=== PATIENT | male | born 1970 | race Caucasian/White ===

== ENCOUNTER 2017-09-29 21:10 | Emergency (ER) | payer SELFPAY ==
[~2017-09-29] VITALS: Ht 182.9 cm; Wt 86.2 kg
[~2017-09-29 21:10] MED LIST: ASPI81CH59 PO; BEN10T GT; CAR3125T OR; DIGO0.1262 PO; FURO20TA PO; SPIR25TA89 PO
[2017-09-29 23:18] LABS: Urine Bacteria FEW /hpf (None Seen); Urine Blood Negative /uL (Negative); Urine Mucus FEW (None Seen); Urine Specific Gravity 1.031 (1.001-1.035); Urine WBC 1 /hpf (0 - 3)
[2017-09-29 23:45] LABS: Basophils # (auto) 0 uL; Basophils % (auto) 0.5 % (0.0-2.0); Eosinophils # (auto) 0.2 uL; Eosinophils % (auto) 1.9 % (0.0-7.0); Hematocrit 46.3 % (41.0-53.0); Hemoglobin 15.5 g/dL (13.5-17.5); Lymphocytes # (auto) 1.3 uL; Lymphocytes % (auto) 14.3 % (10.0-50.0); Mean Corpuscular Hemoglobin 30.8 pg (28.0-32.0); Mean Corpuscular Hgb Conc. 33.6 g/dL (32.0-36.0); Mean Corpuscular Volume 91.9 fL (80.0-100.0); Monocytes # (auto) 0.5 uL; Monocytes % (auto) 5.6 % (0.0-12.0); Neutrophils # (auto) 7.1 uL; Neutrophils % (auto) 77.7 % (37.0-80.0); Platelet Count (auto) 165 10^3/uL (140-450); Red Blood Cells 5.04 10^6/uL (4.5-5.90); White Blood Cell 9.2 10^3/uL (4.4-10.8)
[2017-09-30 00:04] LABS: Alanine Aminotransferase 25 U/L (16-61); Albumin 3.4 g/dL (3.4-5.0); Anion Gap 7 (5-15); BUN/Creatinine Ratio 16.3; Blood Urea Nitrogen 14 mg/dL (7-18); Calcium 8.6 mg/dL (8.5-10.1); Carbon Dioxide 27 mmol/L (21-32); Chloride 102 mmol/L (98-107); GFR African American 124 mL/min; GFR Non-African American 102 mL/min; Glucose 116 mg/dL (74-106); Magnesium 1.8 mg/dL (1.6-2.6); Potassium 4.2 mmol/L (3.5-5.1); Sodium 136 mmol/L (136-145)
[2017-09-30 00:11] LABS: Alkaline Phosphatase 66 U/L (45-117); Aspartate Aminotransferase 10 U/L (15-37); Bilirubin, Total 0.6 mg/dL (0.2-1.0); Total Protein 8.2 g/dL (6.4-8.2)
[2017-09-30] MEDS ORDERED: ASPirin 81 mg TAB PO ONE (08:30)
[2017-09-30 08:56] VITALS: BP 120/70
== END 2017-09-30 09:09 | disposition home or self-care (01) ==
LOC: ER 21:10
DX: R07.89 Other chest pain (principal); I11.0 Hypertensive heart disease with heart failure; I50.9 Heart failure, unspecified
CPT/HCPCS: 36415; 71045; 80053; 81001; 83735; 83880; 84484; 85025; 93005

== ENCOUNTER 2021-04-17 20:47 | Inpatient (IN) | payer MEDICAID ==
[~2021-04-17] VITALS: Ht 182.9 cm; Wt 86.2 kg
[~2021-04-17 20:47] MED LIST changes: -BEN10T GT; +BENA10TA14 GT; +FURO1TAB33 PO; -FURO20TA PO; +SPIR25TA8 PO; -SPIR25TA89 PO
[2021-04-17] MEDS ORDERED: dilTIAZem 25 MG/5 ML VIAL IV ONE ×2 (21:45→22:15)
[2021-04-17 23:11] LABS: Basophils # (auto) 0.1 10 ^3/uL (0-0.2); Basophils % (auto) 1.2 % (0.0-2.0); Eosinophils # (auto) 0.1 10 ^3/uL (0-0.8); Eosinophils % (auto) 1.6 % (0.0-7.0); Hematocrit 50.3 % (41.0-53.0); Hemoglobin 15.9 g/dL (13.5-17.5); Lymphocytes # (auto) 1.4 10 ^3/uL (0.4-5.4); Lymphocytes % (auto) 24.4 % (10.0-50.0); Mean Corpuscular Hemoglobin 28.3 pg (28.0-32.0); Mean Corpuscular Hgb Conc. 31.7 g/dL (32.0-36.0); Mean Corpuscular Volume 89.3 fL (80.0-100.0); Monocytes # (auto) 0.4 10 ^3/uL (0-1.3); Monocytes % (auto) 7.5 % (0.0-12.0); Neutrophils # (auto) 3.6 10 ^3/uL (1.6-8.6); Neutrophils % (auto) 65.3 % (37.0-80.0); Nucleated Red Blood Cells % 0.1 %; Red Blood Cells 5.63 10^6/uL (4.5-5.90); Red Cell Distribution Width 17.1 % (11.8-14.3); White Blood Cell 5.6 10^3/uL (4.4-10.8)
[2021-04-17 23:30] LABS: Albumin 3.3 g/dL (3.4-5.0); Calcium 8.8 mg/dL (8.5-10.1)
[2021-04-17 23:35] LABS: BUN/Creatinine Ratio 19.6; Bilirubin, Total 0.9 mg/dL (0.2-1.0); Total Protein 7.5 g/dL (6.4-8.2)
[2021-04-17 23:37] LABS: Potassium 5.2 mmol/L (3.5-5.1)
[2021-04-17 23:53] LABS: INR 1.14 (0.9-1.15); Partial Thromboplastin Time 25.4 sec (23.6-33.0)
[2021-04-18] MEDS ORDERED: NITROGLYCERIN 0.4 MG SL TAB SL PRN (00:15)
[2021-04-18] MEDS ORDERED: ACETAMINOPHEN 325 MG TAB PO PRN (00:15)
[2021-04-18] MEDS ORDERED: DOCUSATE SOD 100 MG CAP PO PRN (00:15)
[2021-04-18] MEDS ORDERED: MORPHINE SULFATE INJECTION 2 MG/ML SYRG IV PRN (00:15)
[2021-04-18] MEDS ORDERED: TEMAZEPAM 15 MG CAP PO PRN (00:15)
[2021-04-18] MEDS ORDERED: HYDROcodone-ACET 5/325MG TAB PO PRN (00:15)
[2021-04-18] MEDS ORDERED: MORPHINE SULFATE 4 MG/ML SYR/VIAL IV PRN (00:15)
[2021-04-18] MEDS ORDERED: METOPROLOL TARTRATE 1MG/1ML-5ML VIAL IV PRN (00:30)
[2021-04-18] MEDS: ONDANSETRON HCL 4 MG/2 ML VIAL IV PRN ×2 (05:58→17:24)
[2021-04-18] MEDS ORDERED: AMIODARONE HCL (50 MG/ ML) 3 ML VIAL IV ONE (06:06)
[2021-04-18] MEDS ORDERED: AMIODARONE HCL 150 MG in D5W 5% 100 ML IV ONE (06:15)
[2021-04-18] MEDS ORDERED: AMIODARONE 450mg/250ml AE 250 ML IV SCH (06:15)
[2021-04-18] MEDS ORDERED: AMIODARONE 450mg/250ml AE 250 ML IV ONE (06:20)
[2021-04-18] MEDS ORDERED: DIGOXIN (250MCG/ML) 2 ML AMPULE IV ONE (07:30)
[2021-04-18] MEDS ORDERED: MULTIPLE VITAMIN TAB PO SCH (10:00)
[2021-04-18] MEDS ORDERED: DIGOXIN 0.125 MG TAB PO SCH (10:00)
[2021-04-18] MEDS ORDERED: ENOXAPARIN SOD 100 MG/1 ML SYRINGE SC SCH (10:00)
[2021-04-18] MEDS ORDERED: ASCORBIC ACID 500 MG TAB PO SCH (10:00)
[2021-04-18] MEDS ORDERED: BENAZEPRIL HCL 10 MG TAB GT SCH (10:00)
[2021-04-18] MEDS ORDERED: SPIRONOLACTONE 25 MG TAB PO SCH (10:00)
[2021-04-18] MEDS ORDERED: CARVEDILOL 3.125 MG TAB PO SCH (10:00)
[2021-04-18] MEDS ORDERED: ZINC SULFATE 220mg CAP or TAB PO SCH (10:00)
[2021-04-18] MEDS ORDERED: FUROSEMIDE 20 MG TAB PO SCH (10:00)
[2021-04-18 11:15] LABS: Urine Bacteria NONE SEEN /hpf (None Seen); Urine Blood Negative /uL (Negative); Urine Hyaline Cast MANY /lpf (0 - 2); Urine Mucus FEW (None Seen); Urine Specific Gravity 1.021 (1.001-1.035); Urine WBC <1 /hpf (0 - 3)
[2021-04-18 12:00] VITALS: BP 92/39
[2021-04-18] MEDS: AMIODARONE 450mg/250ml AE 250 ML IV SCH ×2 (12:15→17:24)
[2021-04-18 13:00] VITALS: BP 92/39
[2021-04-18 16:32] LABS: Amphetamine Screen, Urine POSITIVE (NEGATIVE); Barbiturate Scree,Urine NEGATIVE (NEGATIVE); Benzodiazephine Screen, Urine NEGATIVE (NEGATIVE); Cannabinoid Screen, Urine NEGATIVE (NEGATIVE); Cocaine Screen, Urine NEGATIVE (NEGATIVE); Phencyclidine Screen, Urine NEGATIVE (NEGATIVE)
[2021-04-18 16:40] LABS: Opiate Scree,Urine NEGATIVE (NEGATIVE)
[2021-04-18 17:00] VITALS: BP 100/56
[2021-04-18 20:45] VITALS: BP 96/71
== END 2021-04-18 21:47 | disposition left against medical advice (07) | DRG 201 ==
LOC: EDBD 20:47 → ER 20:49 → TELE 04-18 00:14 → TELE-WESTW 04-18 11:07
PROVIDERS: ADMIT Internal Medicine; ATTEND Internal Medicine
DX: I48.91 Unspecified atrial fibrillation (principal); I50.9 Heart failure, unspecified; R10.13 Epigastric pain; Z53.29 Procedure and treatment not carried out because of patient's decision for other reasons; Z20.822 Contact with and (suspected) exposure to COVID-19; Z79.82 Long term (current) use of aspirin; Z79.899 Other long term (current) drug therapy; Z81.8 Family history of other mental and behavioral disorders; Z82.49 Family history of ischemic heart disease and other diseases of the circulatory system; Z91.19 Patient's noncompliance with other medical treatment and regimen
CPT/HCPCS: 36415; 71045; 80053; 80307; 81001; 83735; 83880; 84484; 85025; 85379; 85610; 85730; 87040; 87426; 93306; 96365; 96366; 96372; 96375; G0378; J2405; J7060

== ENCOUNTER 2021-05-03 21:17 | Emergency (ER) | payer MEDICAID ==
[~2021-05-03] VITALS: Ht 182.9 cm; Wt 86.2 kg
[2021-05-03 21:23] VITALS: BP 117/87
== END 2021-05-04 03:24 | disposition left against medical advice (07) ==
LOC: ER 21:17
DX: R22.43 Localized swelling, mass and lump, lower limb, bilateral (principal); Z53.21 Procedure and treatment not carried out due to patient leaving prior to being seen by health care provider

== ENCOUNTER 2021-10-11 21:44 | Inpatient (IN) | payer MEDICAID ==
[~2021-10-11] VITALS: Ht 182.9 cm; Wt 100.0 kg
[2021-10-11 23:35] LABS: Basophils # (auto) 0.2 10 ^3/uL (0-0.2); Basophils % (auto) 3.5 % (0.0-2.0); Eosinophils # (auto) 0.1 10 ^3/uL (0-0.8); Eosinophils % (auto) 1.4 % (0.0-7.0); Hematocrit 47.7 % (41.0-53.0); Hemoglobin 16.1 g/dL (13.5-17.5); Lymphocytes # (auto) 0.7 10 ^3/uL (0.4-5.4); Lymphocytes % (auto) 12.7 % (10.0-50.0); Mean Corpuscular Hemoglobin 28.8 pg (28.0-32.0); Mean Corpuscular Hgb Conc. 33.7 g/dL (32.0-36.0); Mean Corpuscular Volume 85.6 fL (80.0-100.0); Monocytes # (auto) 0.4 10 ^3/uL (0-1.3); Monocytes % (auto) 7.2 % (0.0-12.0); Neutrophils # (auto) 4.4 10 ^3/uL (1.6-8.6); Neutrophils % (auto) 75.2 % (37.0-80.0); Nucleated Red Blood Cells % 0.1 %; Red Blood Cells 5.57 10^6/uL (4.5-5.90); Red Cell Distribution Width 14.3 % (11.8-14.3); White Blood Cell 5.9 10^3/uL (4.4-10.8)
[2021-10-11 23:56] LABS: Albumin 3.7 g/dL (3.4-5.0); BUN/Creatinine Ratio 12.3; Calcium 8.8 mg/dL (8.5-10.1); Magnesium 2.5 mg/dL (1.6-2.6); Potassium 4.1 mmol/L (3.5-5.1)
[2021-10-11 23:58] LABS: Bilirubin, Total 1.6 mg/dL (0.2-1.0); Total Protein 7.5 g/dL (6.4-8.2)
[2021-10-12] MEDS ORDERED: FUROSEMIDE 100 MG/10ML VIAL IV ONE (02:30)
[2021-10-12] MEDS ORDERED: NITROGLYCERIN 0.4 MG SL TAB SL PRN (05:00)
[2021-10-12] MEDS ORDERED: MORPHINE SULFATE INJ 2 MG/ml SYRG IV PRN (05:00)
[2021-10-12] MEDS ORDERED: ACETAMINOPHEN 325 MG TAB PO PRN (05:00)
[2021-10-12 06:01] LABS: Urine Bacteria NONE SEEN /hpf (None Seen); Urine Blood Negative /uL (Negative); Urine Specific Gravity 1.006 (1.001-1.035); Urine WBC <1 /hpf (0 - 3)
[2021-10-12 06:02] LABS: Alcohol, Urine < 3.0 mg/dL (0-10); Amphetamine Screen, Urine NEGATIVE (NEGATIVE); Barbiturate Scree,Urine NEGATIVE (NEGATIVE); Benzodiazephine Screen, Urine NEGATIVE (NEGATIVE); Cannabinoid Screen, Urine NEGATIVE (NEGATIVE); Cocaine Screen, Urine NEGATIVE (NEGATIVE); Opiate Scree,Urine NEGATIVE (NEGATIVE); Phencyclidine Screen, Urine NEGATIVE (NEGATIVE)
[2021-10-12] MEDS: CARVEDILOL 3.125 MG TAB PO SCH ×2 (10:00→22:12)
[2021-10-12] MEDS: FUROSEMIDE 100 MG/10ML VIAL IV SCH (10:00)
[2021-10-12] MEDS: cefTRIAXone 1GM/50ML D5W 50 ML IV SCH (10:08)
[2021-10-12] MEDS: APIXABAN 5 MG TAB PO SCH ×2 (10:24→22:12)
[2021-10-12] MEDS: ASCORBIC ACID 500 MG TAB PO SCH ×2 (10:24→22:13)
[2021-10-12] MEDS: ZINC SULFATE 220mg CAP or TAB PO SCH (10:24)
[2021-10-12] MEDS: MULTIPLE VITAMIN TAB PO SCH (10:24)
[2021-10-12] MEDS: ENOXAPARIN SOD 30 MG/0.3 ML SYRINGE SC SCH (10:25)
[2021-10-12] MEDS: AZITHROMYCIN 500MG/ 250ML 250 ML IV SCH (10:25)
[2021-10-12] MEDS: SODIUM CHLORIDE 0.9% 1,000 ML IV SCH (11:45)
[2021-10-12 16:30] VITALS: BP 93/59
[2021-10-12] MEDS: IPRATROPIUM BROM 0.5 MG/2.5ML INH SOL NEB SCH ×2 (18:45→22:21)
[2021-10-12] MEDS ORDERED: APIX2.5T PO (18:53)
[2021-10-12 19:22] VITALS: BP 104/75
[2021-10-12 22:00] VITALS: BP 104/75
[2021-10-13] MEDS: SODIUM CHLORIDE 0.9% 1,000 ML IV SCH ×2 (00:15→12:45)
[2021-10-13 05:00] VITALS: BP 95/61
[2021-10-13] MEDS: IPRATROPIUM BROM 0.5 MG/2.5ML INH SOL NEB SCH ×5 (06:07→22:10)
[2021-10-13] MEDS: SUCRALFATE 1 GM/10 ML ORAL SUSP PO SCH ×4 (06:26→22:12)
[2021-10-13] MEDS ORDERED: PNEUMOCOCCAL VACC POLYS 25 MCG/0.5 ML VIAL IM ONE (06:30)
[2021-10-13] MEDS ORDERED: INFLUENZA QUAD 2021-2022 0.5 ML SYRG IM ONE (06:30)
[2021-10-13 08:00] VITALS: BP 101/60
[2021-10-13] MEDS: AZITHROMYCIN 500MG/ 250ML 250 ML IV SCH (08:22)
[2021-10-13] MEDS: cefTRIAXone 1GM/50ML D5W 50 ML IV SCH (08:22)
[2021-10-13] MEDS: MULTIPLE VITAMIN TAB PO SCH (08:23)
[2021-10-13] MEDS: ZINC SULFATE 220mg CAP or TAB PO SCH (08:23)
[2021-10-13] MEDS: ASCORBIC ACID 500 MG TAB PO SCH ×2 (08:23→22:13)
[2021-10-13] MEDS: APIXABAN 5 MG TAB PO SCH ×2 (08:23→22:13)
[2021-10-13] MEDS: ONDANSETRON HCL 4 MG/2 ML VIAL IV PRN (08:23)
[2021-10-13] MEDS: FUROSEMIDE 100 MG/10ML VIAL IV SCH (08:24)
[2021-10-13] MEDS: CARVEDILOL 3.125 MG TAB PO SCH ×2 (08:24→22:13)
[2021-10-13] MEDS: ENOXAPARIN SOD 30 MG/0.3 ML SYRINGE SC SCH (08:39)
[2021-10-13 09:00] VITALS: BP 93/41
[2021-10-13] MEDS: PANTOPRAZOLE 40 MG TAB PO SCH (09:39)
[2021-10-13] MEDS: MORPHINE SULFATE INJ 2 MG/ml SYRG IV PRN ×2 (10:11→20:46)
[2021-10-13 13:00] VITALS: BP 97/69
[2021-10-13] MEDS ORDERED: METOPROLOL TARTRATE 1MG/1ML-5ML VIAL IV PRN (15:00)
[2021-10-13 16:51] VITALS: BP 111/76
[2021-10-13 21:08] LABS: Basophils # (auto) 0.1 10 ^3/uL (0-0.2); Basophils % (auto) 1.2 % (0.0-2.0); Eosinophils # (auto) 0 10 ^3/uL (0-0.8); Eosinophils % (auto) 0.7 % (0.0-7.0); Hematocrit 44.1 % (41.0-53.0); Hemoglobin 14.9 g/dL (13.5-17.5); Lymphocytes # (auto) 0.8 10 ^3/uL (0.4-5.4); Lymphocytes % (auto) 11.4 % (10.0-50.0); Mean Corpuscular Hgb Conc. 33.6 g/dL (32.0-36.0); Mean Corpuscular Volume 86.1 fL (80.0-100.0); Monocytes # (auto) 0.6 10 ^3/uL (0-1.3); Monocytes % (auto) 8.9 % (0.0-12.0); Neutrophils # (auto) 5.4 10 ^3/uL (1.6-8.6); Neutrophils % (auto) 77.8 % (37.0-80.0); Nucleated Red Blood Cells % 0.2 %; Red Blood Cells 5.12 10^6/uL (4.5-5.90); Red Cell Distribution Width 14.3 % (11.8-14.3)
[2021-10-13 21:31] LABS: Albumin 3.1 g/dL (3.4-5.0); BUN/Creatinine Ratio 11.2; Potassium 4.1 mmol/L (3.5-5.1)
[2021-10-13 21:34] LABS: Bilirubin, Total 1.2 mg/dL (0.2-1.0); Total Protein 7.2 g/dL (6.4-8.2)
[2021-10-13 21:36] VITALS: BP 103/78
[2021-10-14] MEDS: SODIUM CHLORIDE 0.9% 1,000 ML IV SCH ×2 (01:15→13:45)
[2021-10-14 04:49] VITALS: BP 112/76
[2021-10-14] MEDS: SUCRALFATE 1 GM/10 ML ORAL SUSP PO SCH ×4 (06:45→20:41)
[2021-10-14] MEDS: IPRATROPIUM BROM 0.5 MG/2.5ML INH SOL NEB SCH ×5 (06:53→22:00)
[2021-10-14 08:38] VITALS: BP 113/83
[2021-10-14] MEDS: cefTRIAXone 1GM/50ML D5W 50 ML IV SCH (08:47)
[2021-10-14] MEDS: MULTIPLE VITAMIN TAB PO SCH (11:05)
[2021-10-14] MEDS: ASCORBIC ACID 500 MG TAB PO SCH ×2 (11:05→20:42)
[2021-10-14] MEDS: APIXABAN 5 MG TAB PO SCH ×2 (11:05→20:41)
[2021-10-14] MEDS: PANTOPRAZOLE 40 MG TAB PO SCH (11:05)
[2021-10-14] MEDS: CARVEDILOL 3.125 MG TAB PO SCH ×2 (11:07→21:43)
[2021-10-14] MEDS: MORPHINE SULFATE INJ 2 MG/ml SYRG IV PRN ×2 (11:08→21:45)
[2021-10-14] MEDS: ZINC SULFATE 220mg CAP or TAB PO SCH (12:15)
[2021-10-14] MEDS: ONDANSETRON HCL 4 MG/2 ML VIAL IV PRN ×2 (12:23→21:45)
[2021-10-14 13:00] VITALS: BP 107/73
[2021-10-14 17:23] VITALS: BP 110/65
[2021-10-14] MEDS: DOCUSATE SOD 100 MG CAP PO PRN (20:43)
[2021-10-14 22:00] VITALS: BP 116/74
[2021-10-15] VITALS (7 sets, daily range): BP systolic 94–146; BP diastolic 58–98
[2021-10-15] MEDS: ONDANSETRON HCL 4 MG/2 ML VIAL IV PRN ×2 (03:00→11:28)
[2021-10-15] MEDS: MORPHINE SULFATE INJ 2 MG/ml SYRG IV PRN ×3 (03:00→15:00)
[2021-10-15] MEDS: SODIUM CHLORIDE 0.9% 1,000 ML IV SCH ×2 (04:55→05:38)
[2021-10-15] MEDS: SUCRALFATE 1 GM/10 ML ORAL SUSP PO SCH ×4 (05:21→22:00)
[2021-10-15] MEDS: IPRATROPIUM BROM 0.5 MG/2.5ML INH SOL NEB SCH ×6 (06:40→22:22)
[2021-10-15] MEDS: cefTRIAXone 1GM/50ML D5W 50 ML IV SCH (09:33)
[2021-10-15] MEDS: ASCORBIC ACID 500 MG TAB PO SCH ×2 (09:34→22:00)
[2021-10-15] MEDS: PANTOPRAZOLE 40 MG TAB PO SCH (09:34)
[2021-10-15] MEDS: MULTIPLE VITAMIN TAB PO SCH (09:34)
[2021-10-15] MEDS: APIXABAN 5 MG TAB PO SCH ×2 (09:35→22:00)
[2021-10-15] MEDS: ZINC SULFATE 220mg CAP or TAB PO SCH (09:35)
[2021-10-15] MEDS: CARVEDILOL 3.125 MG TAB PO SCH ×2 (09:37→22:00)
[2021-10-15 10:07] LABS: Hepatitis B Surface Antibody Positive (Negative)
[2021-10-15 10:39] LABS: Hepatitis A Total Antibody Positive (Negative)
[2021-10-15] MEDS: HYDROcodone-ACET 5/325MG TAB PO PRN (11:28)
[2021-10-15] MEDS: DOCUSATE SOD 100 MG CAP PO PRN (11:28)
[2021-10-15 13:13] LABS: Hepatitis C Antibody Negative (Negative)
[2021-10-15] MEDS ORDERED: ALUM & MAG HYDROX-SIMETH LIQ(MAALOX) 30 ML PO ONE (16:15)
[2021-10-15] MEDS: metroNIDAZOLE 500MG/100ML 100 ML IV SCH ×2 (16:15→22:00)
[2021-10-15] MEDS ORDERED: PANTOPRAZOLE 40 MG/10 ML VIAL INJ IV SCH (22:00)
[2021-10-16] MEDS: SODIUM CHLORIDE 0.9% 1,000 ML IV SCH (03:15)
[2021-10-16 05:00] VITALS: BP 95/67
[2021-10-16] MEDS: metroNIDAZOLE 500MG/100ML 100 ML IV SCH ×2 (05:04→14:00)
[2021-10-16] MEDS: SUCRALFATE 1 GM/10 ML ORAL SUSP PO SCH ×4 (06:32→20:44)
[2021-10-16] MEDS: IPRATROPIUM BROM 0.5 MG/2.5ML INH SOL NEB SCH ×7 (06:33→22:52)
[2021-10-16 08:00] VITALS: BP 125/93
[2021-10-16 09:00] VITALS: BP 121/82
[2021-10-16] MEDS ORDERED: levoFLOXacin 250MG 50 ML IV SCH (10:00)
[2021-10-16] MEDS: ZINC SULFATE 220mg CAP or TAB PO SCH (11:21)
[2021-10-16] MEDS: CARVEDILOL 3.125 MG TAB PO SCH ×2 (11:24→20:45)
[2021-10-16] MEDS: APIXABAN 5 MG TAB PO SCH ×2 (11:25→20:44)
[2021-10-16] MEDS: MULTIPLE VITAMIN TAB PO SCH (11:25)
[2021-10-16] MEDS: ASCORBIC ACID 500 MG TAB PO SCH ×2 (11:25→20:45)
[2021-10-16 13:00] VITALS: BP 118/66
[2021-10-16 17:00] VITALS: BP 108/80
[2021-10-16] MEDS: levoFLOXacin 250 MG TAB PO SCH (18:26)
[2021-10-16] MEDS: HYDROcodone-ACET 5/325MG TAB PO PRN (20:42)
[2021-10-16] MEDS: DOCUSATE SOD 100 MG CAP PO PRN (20:43)
[2021-10-16] MEDS: metroNIDAZOLE 500 MG TAB PO SCH (20:45)
[2021-10-16 22:00] VITALS: BP 112/80
[2021-10-16 22:13] LABS: BUN/Creatinine Ratio 16.9; Calcium 8.6 mg/dL (8.5-10.1); Potassium 4.7 mmol/L (3.5-5.1)
[2021-10-17] MEDS: HYDROcodone-ACET 5/325MG TAB PO PRN (01:26)
[2021-10-17] MEDS: ONDANSETRON HCL 4 MG/2 ML VIAL IV PRN ×2 (01:49→08:40)
[2021-10-17] MEDS: MORPHINE SULFATE INJ 2 MG/ml SYRG IV PRN ×3 (01:49→20:36)
[2021-10-17 05:00] VITALS: BP 119/80
[2021-10-17] MEDS: metroNIDAZOLE 500 MG TAB PO SCH ×3 (05:20→21:31)
[2021-10-17] MEDS: SUCRALFATE 1 GM/10 ML ORAL SUSP PO SCH ×4 (05:21→21:28)
[2021-10-17] MEDS: IPRATROPIUM BROM 0.5 MG/2.5ML INH SOL NEB SCH ×5 (06:59→22:00)
[2021-10-17 07:21] LABS: Potassium 4.7 mmol/L (3.5-5.1)
[2021-10-17 07:26] LABS: BUN/Creatinine Ratio 19.8; Calcium 8.5 mg/dL (8.5-10.1); Magnesium 3.3 mg/dL (1.6-2.6)
[2021-10-17 09:00] VITALS: BP 102/63
[2021-10-17] MEDS ORDERED: PANTOPRAZOLE 40 MG/10 ML VIAL INJ IV SCH (10:00)
[2021-10-17] MEDS: PANTOPRAZOLE 40 MG TAB PO SCH (10:28)
[2021-10-17] MEDS: APIXABAN 5 MG TAB PO SCH ×2 (10:29→21:29)
[2021-10-17] MEDS: ASCORBIC ACID 500 MG TAB PO SCH ×2 (10:29→21:29)
[2021-10-17] MEDS: MULTIPLE VITAMIN TAB PO SCH (10:29)
[2021-10-17] MEDS: ZINC SULFATE 220mg CAP or TAB PO SCH (10:30)
[2021-10-17] MEDS: CARVEDILOL 3.125 MG TAB PO SCH ×2 (10:32→21:30)
[2021-10-17 13:00] VITALS: BP 111/81
[2021-10-17 17:00] VITALS: BP 116/84
[2021-10-17] MEDS: levoFLOXacin 250 MG TAB PO SCH (18:00)
[2021-10-17 22:00] VITALS: BP 116/65
[2021-10-18] MEDS: MORPHINE SULFATE INJ 2 MG/ml SYRG IV PRN ×3 (01:07→18:18)
[2021-10-18] MEDS: ONDANSETRON HCL 4 MG/2 ML VIAL IV PRN ×2 (04:32→21:06)
[2021-10-18 05:00] VITALS: BP 92/68
[2021-10-18 05:35] LABS: Potassium 5.3 mmol/L (3.5-5.1)
[2021-10-18] MEDS: metroNIDAZOLE 500 MG TAB PO SCH ×3 (05:37→21:53)
[2021-10-18 05:41] LABS: BUN/Creatinine Ratio 20.1; Calcium 8.2 mg/dL (8.5-10.1); Magnesium 3.2 mg/dL (1.6-2.6)
[2021-10-18] MEDS: SUCRALFATE 1 GM/10 ML ORAL SUSP PO SCH ×4 (06:23→21:56)
[2021-10-18] MEDS: IPRATROPIUM BROM 0.5 MG/2.5ML INH SOL NEB SCH ×5 (07:40→22:00)
[2021-10-18 08:00] VITALS: BP 125/93
[2021-10-18 08:10] VITALS: BP 118/74
[2021-10-18] MEDS: ZINC SULFATE 220mg CAP or TAB PO SCH (11:14)
[2021-10-18] MEDS: MULTIPLE VITAMIN TAB PO SCH (11:15)
[2021-10-18] MEDS: APIXABAN 5 MG TAB PO SCH ×2 (11:15→21:53)
[2021-10-18] MEDS: CARVEDILOL 3.125 MG TAB PO SCH ×2 (11:15→11:30)
[2021-10-18] MEDS: ASCORBIC ACID 500 MG TAB PO SCH ×2 (11:16→21:53)
[2021-10-18] MEDS: PANTOPRAZOLE 40 MG TAB PO SCH (11:28)
[2021-10-18] MEDS ORDERED: SODIUM ZIRCONIUM CYCL 10 GM PAK PO ONE (11:30)
[2021-10-18] MEDS: SODIUM CHLORIDE 0.9% 1,000 ML IV SCH (11:56)
[2021-10-18 12:05] VITALS: BP 112/83
[2021-10-18 16:05] VITALS: BP 118/86
[2021-10-18] MEDS: levoFLOXacin 250 MG TAB PO SCH (18:16)
[2021-10-18] MEDS ORDERED: LACTULOSE 20Gm/30ML SOLN PO PRN (19:45)
[2021-10-18 21:34] VITALS: BP 109/80
[2021-10-19] MEDS: SODIUM CHLORIDE 0.9% 1,000 ML IV SCH ×2 (00:50→12:50)
[2021-10-19 04:32] VITALS: BP 109/56
[2021-10-19] MEDS: metroNIDAZOLE 500 MG TAB PO SCH ×3 (05:44→22:11)
[2021-10-19] MEDS: IPRATROPIUM BROM 0.5 MG/2.5ML INH SOL NEB SCH ×5 (06:00→22:00)
[2021-10-19] MEDS: SUCRALFATE 1 GM/10 ML ORAL SUSP PO SCH ×4 (06:05→22:10)
[2021-10-19 08:00] VITALS: BP 125/93
[2021-10-19 09:00] VITALS: BP_SYST 110; BP_SYST 116; BP_DIAS 67; BP_DIAS 89
[2021-10-19 09:45] LABS: BUN/Creatinine Ratio 25.2; Calcium 8.6 mg/dL (8.5-10.1); Magnesium 3.4 mg/dL (1.6-2.6); Potassium 5.1 mmol/L (3.5-5.1)
[2021-10-19] MEDS: ZINC SULFATE 220mg CAP or TAB PO SCH (10:08)
[2021-10-19] MEDS: CARVEDILOL 3.125 MG TAB PO SCH ×2 (10:11→22:20)
[2021-10-19] MEDS: SODIUM ZIRCONIUM CYCL 10 GM PAK PO SCH (10:12)
[2021-10-19] MEDS: APIXABAN 5 MG TAB PO SCH ×2 (10:12→22:11)
[2021-10-19] MEDS: PANTOPRAZOLE 40 MG TAB PO SCH (10:13)
[2021-10-19] MEDS: ASCORBIC ACID 500 MG TAB PO SCH ×2 (10:13→22:11)
[2021-10-19] MEDS: MULTIPLE VITAMIN TAB PO SCH (10:13)
[2021-10-19] MEDS: ONDANSETRON HCL 4 MG/2 ML VIAL IV PRN (12:53)
[2021-10-19 12:58] VITALS: BP 98/67
[2021-10-19 16:48] VITALS: BP 137/118
[2021-10-19] MEDS: MORPHINE SULFATE INJ 2 MG/ml SYRG IV PRN (17:47)
[2021-10-19] MEDS: HYDROmorphone HCL 2 MG/ML VL/or syr IV PRN (19:02)
[2021-10-19] MEDS: levoFLOXacin 250 MG TAB PO SCH (19:09)
[2021-10-19 22:00] VITALS: BP 97/68
[2021-10-20] MEDS: HYDROmorphone HCL 2 MG/ML VL/or syr IV PRN ×2 (00:33→10:14)
[2021-10-20] MEDS: SODIUM CHLORIDE 0.9% 1,000 ML IV SCH ×2 (03:30→12:10)
[2021-10-20 05:00] VITALS: BP 100/78
[2021-10-20] MEDS: IPRATROPIUM BROM 0.5 MG/2.5ML INH SOL NEB SCH ×5 (06:21→22:00)
[2021-10-20] MEDS: SUCRALFATE 1 GM/10 ML ORAL SUSP PO SCH ×4 (06:30→23:32)
[2021-10-20] MEDS: metroNIDAZOLE 500 MG TAB PO SCH ×3 (06:30→23:33)
[2021-10-20 09:00] VITALS: BP 112/43
[2021-10-20] MEDS: ZINC SULFATE 220mg CAP or TAB PO SCH (10:10)
[2021-10-20] MEDS: CARVEDILOL 3.125 MG TAB PO SCH ×2 (10:11→23:34)
[2021-10-20] MEDS: SODIUM ZIRCONIUM CYCL 10 GM PAK PO SCH (10:12)
[2021-10-20] MEDS: MULTIPLE VITAMIN TAB PO SCH (10:12)
[2021-10-20] MEDS: ASCORBIC ACID 500 MG TAB PO SCH ×2 (10:12→23:34)
[2021-10-20] MEDS: APIXABAN 5 MG TAB PO SCH ×2 (10:12→23:33)
[2021-10-20] MEDS: PANTOPRAZOLE 40 MG TAB PO SCH ×2 (10:12→23:33)
[2021-10-20 13:00] VITALS: BP 100/52
[2021-10-20 16:53] VITALS: BP 101/78
[2021-10-20] MEDS: BUMETANIDE 1mg/4ml VIAL (0.25mg/ml) IV SCH ×2 (18:19→23:32)
[2021-10-20] MEDS: levoFLOXacin 250 MG TAB PO SCH (18:45)
[2021-10-20 22:00] VITALS: BP 94/72
[2021-10-21 05:00] VITALS: BP 96/70
[2021-10-21] MEDS: metroNIDAZOLE 500 MG TAB PO SCH ×3 (05:44→22:05)
[2021-10-21] MEDS: SUCRALFATE 1 GM/10 ML ORAL SUSP PO SCH ×4 (05:44→22:04)
[2021-10-21] MEDS: BUMETANIDE 1mg/4ml VIAL (0.25mg/ml) IV SCH ×3 (05:54→22:04)
[2021-10-21] MEDS: IPRATROPIUM BROM 0.5 MG/2.5ML INH SOL NEB SCH ×3 (06:03→14:44)
[2021-10-21 09:00] VITALS: BP 104/71
[2021-10-21] MEDS: ZINC SULFATE 220mg CAP or TAB PO SCH (09:10)
[2021-10-21] MEDS: CARVEDILOL 3.125 MG TAB PO SCH ×2 (09:11→22:05)
[2021-10-21] MEDS: APIXABAN 5 MG TAB PO SCH ×2 (09:11→22:05)
[2021-10-21] MEDS: ASCORBIC ACID 500 MG TAB PO SCH ×2 (09:12→22:06)
[2021-10-21] MEDS: PANTOPRAZOLE 40 MG TAB PO SCH ×2 (09:12→22:06)
[2021-10-21] MEDS: MULTIPLE VITAMIN TAB PO SCH (09:12)
[2021-10-21] MEDS: HYDROmorphone HCL 2 MG/ML VL/or syr IV PRN ×4 (09:14→23:31)
[2021-10-21] MEDS: SODIUM ZIRCONIUM CYCL 10 GM PAK PO SCH (10:00)
[2021-10-21] MEDS ORDERED: POLYETHYLENE GLYCOL 17 GM PWDR PO PRN (11:15)
[2021-10-21] MEDS ORDERED: LACTULOSE 20Gm/30ML SOLN PO PRN (11:15)
[2021-10-21 12:38] VITALS: BP 104/61
[2021-10-21] MEDS: levoFLOXacin 250 MG TAB PO SCH (18:00)
[2021-10-21] MEDS ORDERED: ALBUMIN 25% 50 ML IV ONE (21:00)
[2021-10-21 22:00] VITALS: BP 131/89
[2021-10-22 05:00] VITALS: BP 116/56
[2021-10-22] MEDS: metroNIDAZOLE 500 MG TAB PO SCH (05:56)
[2021-10-22] MEDS: BUMETANIDE 1mg/4ml VIAL (0.25mg/ml) IV SCH (05:56)
[2021-10-22] MEDS: SUCRALFATE 1 GM/10 ML ORAL SUSP PO SCH (05:57)
[2021-10-22] MEDS: ONDANSETRON HCL 4 MG/2 ML VIAL IV PRN (05:57)
[2021-10-22] MEDS: HYDROmorphone HCL 2 MG/ML VL/or syr IV PRN (05:59)
[2021-10-22 09:00] VITALS: BP 92/57
[2021-10-22 09:05] VITALS: BP 116/56
[2021-10-22] MEDS: CARVEDILOL 3.125 MG TAB PO SCH (09:07)
[2021-10-22] MEDS: APIXABAN 5 MG TAB PO SCH (09:07)
[2021-10-22] MEDS: PANTOPRAZOLE 40 MG TAB PO SCH (09:07)
[2021-10-22] MEDS: MULTIPLE VITAMIN TAB PO SCH (09:07)
[2021-10-22] MEDS: ZINC SULFATE 220mg CAP or TAB PO SCH (09:38)
[2021-10-22 12:02] LABS: Basophils # (auto) 0 10 ^3/uL (0-0.2); Basophils % (auto) 0.4 % (0.0-2.0); Eosinophils # (auto) 0 10 ^3/uL (0-0.8); Eosinophils % (auto) 0.1 % (0.0-7.0); Hematocrit 32.1 % (41.0-53.0); Hemoglobin 10.7 g/dL (13.5-17.5); Lymphocytes # (auto) 0.6 10 ^3/uL (0.4-5.4); Lymphocytes % (auto) 7.5 % (10.0-50.0); Mean Corpuscular Hemoglobin 30.2 pg (28.0-32.0); Mean Corpuscular Hgb Conc. 33.5 g/dL (32.0-36.0); Mean Corpuscular Volume 90.2 fL (80.0-100.0); Monocytes # (auto) 0.9 10 ^3/uL (0-1.3); Monocytes % (auto) 12.1 % (0.0-12.0); Neutrophils # (auto) 6.2 10 ^3/uL (1.6-8.6); Neutrophils % (auto) 79.9 % (37.0-80.0); Red Blood Cells 3.56 10^6/uL (4.5-5.90); Red Cell Distribution Width 15.1 % (11.8-14.3); White Blood Cell 7.8 10^3/uL (4.4-10.8)
== END 2021-10-22 14:22 | disposition left against medical advice (07) | DRG 139 ==
LOC: ER 21:44 → TELE 10-12 04:51 → TELE-WESTW 10-12 17:57
PROVIDERS: ADMIT Internal Medicine; ATTEND Internal Medicine
PROC: 4B02XTZ Measurement of Cardiac Defibrillator, External Approach (ICD-10-PCS; 2021-10-12)
PROC: 05HA33Z Insertion of Infusion Device into Left Brachial Vein, Percutaneous Approach (ICD-10-PCS; principal; 2021-10-16)
PROC: B54NZZA Ultrasonography of Left Upper Extremity Veins, Guidance (ICD-10-PCS; 2021-10-16)
DX: J18.9 Pneumonia, unspecified organism (principal); N17.0 Acute kidney failure with tubular necrosis; I50.23 Acute on chronic systolic (congestive) heart failure; I47.2 Ventricular tachycardia; I27.20 Pulmonary hypertension, unspecified; E87.1 Hypo-osmolality and hyponatremia; I42.0 Dilated cardiomyopathy; E88.09 Other disorders of plasma-protein metabolism, not elsewhere classified; Z66 Do not resuscitate; I13.0 Hypertensive heart and chronic kidney disease with heart failure and stage 1 through stage 4 chronic kidney disease, or unspecified chronic kidney disease; I48.0 Paroxysmal atrial fibrillation; K29.70 Gastritis, unspecified, without bleeding; N18.30 Chronic kidney disease, stage 3 unspecified; Z53.29 Procedure and treatment not carried out because of patient's decision for other reasons; I25.10 Atherosclerotic heart disease of native coronary artery without angina pectoris; I42.7 Cardiomyopathy due to drug and external agent; K59.00 Constipation, unspecified; Z59.00 Homelessness unspecified; Z79.01 Long term (current) use of anticoagulants; Z79.82 Long term (current) use of aspirin; Z79.899 Other long term (current) drug therapy; Z81.8 Family history of other mental and behavioral disorders; Z82.49 Family history of ischemic heart disease and other diseases of the circulatory system; Z91.19 Patient's noncompliance with other medical treatment and regimen; Z95.810 Presence of automatic (implantable) cardiac defibrillator; Z88.8 Allergy status to other drugs, medicaments and biological substances
CPT/HCPCS: 36415; 71045; 74176; 76705; 78226; 80048; 80053; 80307; 81001; 82962; 83735; 83880; 84484; 85025; 86677; 86704; 86706; 86708; 86803; 87340; 93005; 93306; 94640; 96365; 96368; 96372; 96375; C9113; G0378; J0696; J2405; J3490